=== PATIENT | male | born 1965 | race Caucasian/White ===

== ENCOUNTER 2016-07-23 16:23 | Emergency (ER) | payer OTHER ==
--- NOTE | 2016-07-25 09:10 | ER ---
ADMIT: 07/23/2016 RM/LOC: ER [facility] MR#: [id number] [facility] [address] [place], [place] [id number] JEISON THORPE [address] [place], [place] [address] Emergency Room Report SEX: M AGE: 50 : 1965 DATE: 07/23/2016 TIME: 1623 Please refer to my T-sheet for complete H and P. HISTORY OF PRESENT ILLNESS: Briefly, the patient comes in, a 50-year-old, just feeling weak, not well, short of breath, kind of vague symptoms. He said it all kind of started when he was cleaning out some insulation and he was exposed to a lot of mouse feces and urine, that occurred yesterday. He rates the general discomfort 7/10. He has been very healthy otherwise, and was in for evaluation. PHYSICAL EXAMINATION: VITAL SIGNS: Blood pressure 126/79, pulse 70, respirations 18, temp 97.5, saturating 96%. Vital signs are all stable. GENERAL: He is in no acute distress. HEENT: Grossly normal. Mucous membranes moist. LUNGS: Clear. HEART: Regular. ABDOMEN: Soft. SKIN: No rash. NEURO: He is alert, oriented, nonfocal. No nuchal rigidity. EMERGENCY DEPARTMENT COURSE: I did give him doxycycline 100 mg p.o. CBC was normal. Chemistries normal except glucose 104. Troponin negative. UA normal. Chest x-ray negative. EKG was sinus rhythm, rate 62, no changes. I discussed with him and his . We are going to allow him to be discharged with close followup. ASSESSMENT: 1. General weakness. 2. Dust exposure. PLAN: Doxy 100 b.i.d. for 7 days. He will see Chuy this week. Return if worse. Fluids, rest, and Tylenol. Kieran Houser MD/ mario JOB #: [id number] CC: Desmond Marcus MD, Attending Physician Elijah Vera MD, Family Physician
== END 2016-07-23 18:45 | disposition home or self-care (01) ==
LOC: ER 16:23
DX: R53.1 Weakness (principal); Z77.118 Contact with and (suspected) exposure to other environmental pollution; Z79.899 Other long term (current) drug therapy